=== PATIENT | male | born 2005 | race Caucasian/White ===

== ENCOUNTER 2025-03-19 14:54 | Emergency (ER) | payer BC, SELFPAY ==
--- NOTE | ~2025-03-19 | CT_ITS ---
EXAMINATION: CT facial bones wo con COMPARISON: None HISTORY: fell of skateboard - facial trauma TECHNIQUE: Axial images were obtained without IV contrast. Sagittal, coronal reconstruction images were obtained from the axial views. CT scan performed using dose optimization techniques including the following automated exposure control; adjustment of mA and/or kV; use of iterative reconstruction technique. Automatic exposure control was used to reduce radiation dose. Permanent radiation dose record is archived to PACS. FINDINGS: The nasal bones appear intact. Anterior maxillary sinus douglas, zygomatic arches and temporomandibular joints intact. Orbital floors and medial and orbits are intact. Minimal ethmoidal and maxillary sinusitis. There is no retrobulbar hemorrhage or preseptal soft tissue swelling. The visualized brain parenchyma appears unremarkable. Minimal stranding noted in the soft tissues overlying the left maxilla. The remaining soft tissues appear unremarkable. IMPRESSION: No fracture is identified Reviewed, dictated and finalized at location P. IMPRESSION: No fracture is identified
--- NOTE | ~2025-03-19 | CT_ITS ---
EXAMINATION: CT brain wo con COMPARISON: None HISTORY: fell off skateboard/hit head/CONTRERAS TECHNIQUE: Axial images were obtained through the brain without IV contrast. CT scan performed using dose optimization techniques including the following automated exposure control; adjustment of mA and/or kV; use of iterative reconstruction technique. Automatic exposure control was used to reduce radiation dose. Permanent radiation dose record is archived to PACS. FINDINGS: No acute infarct or parenchymal hemorrhage. No abnormal mass or mass effect. No midline shift. No extra-axial fluid collections. No hydrocephalus. . Mastoid air cells unremarkable. Sinuses and orbits unremarkable. No acute fracture. No significant facial or scalp soft tissue swelling evident. No radiopaque foreign body is seen. Impression: 1.No acute intracranial abnormality. Reviewed, dictated and finalized at location P. Impression: 1.No acute intracranial abnormality.
--- NOTE | ~2025-03-19 | XR_ITS ---
EXAMINATION: [id number], 03/19/2025 15:23 CDT HISTORY: fell off skateboard- left rib pain COMPARISON: No comparisons available. Findings: No acute fracture or malalignment. No significant degenerative changes. Soft tissues unremarkable. Impression: No acute fracture or malalignment. Reviewed, dictated and finalized at location P. Impression: No acute fracture or malalignment.
[2025-03-19 15:03] VITALS: BP 112/67; PULSE 87; RESP 18; TEMP 36.9; O2SAT 99
--- NOTE | 2025-03-19 15:06 | ED_ITS ---
HPI - Wound/Laceration General Chief Complaint: Wound/Laceration Stated Complaint: Skateboard injury to left face/ribs Time Seen by Provider: 03/19/25 15:06 Focused HPI: Omar is a 19-year-old male patient presenting to the ER today with complaints of left-sided facial pain, left rib pains, and headache falling off his skateboard. He reports he did hit is head any currently has a headache. Has not taken any medications for his symptoms. Has facial abrasions on the left side of his face with a small laceration to the chin. Denies any loss of conscious. Denies any neck pain. GENERAL: Well-appearing, well-nourished, and in no acute distress. HEAD: Normocephalic, atraumatic. CHEST: Clear to auscultation. No respiratory distress. HEART: Regular rate and rhythm. NEURO: Alert and oriented x3. Patient screened in triage and initial orders placed. Additional care and disposition to be based upon diagnostic testing and treatment. Source: patient Mode of arrival: ambulatory Limitations: no limitations Related Data Allergies Allergy/AdvReac Type Severity Reaction Status Date / Time No Known Allergies Allergy Verified 03/19/25 14:55 Course Vital Signs Vital signs: Vital Signs Temperature 36.9 C 03/19/25 15:03 Pulse Rate 87 03/19/25 15:03 Respiratory Rate 18 03/19/25 15:03 Blood Pressure 112/67 03/19/25 15:03 Pulse Oximetry 99 03/19/25 15:03 Oxygen Delivery Room Air 03/19/25 15:03 Temperature 36.9 C 03/19/25 15:03 Pulse Rate 87 03/19/25 15:03 Respiratory Rate 18 03/19/25 15:03 Blood Pressure 112/67 03/19/25 15:03 Pulse Oximetry 99 03/19/25 15:03 Oxygen Delivery Room Air 03/19/25 15:03 Discharge Plan Discharge Patient Language: Luxembourgish Follow-up/Referrals: PHYSICIAN NOT ON STAFF,NONSTAFF [Primary Care Provider]
--- NOTE | 2025-03-19 20:48 | ED_ITS ---
HPI - Wound/Laceration General Chief Complaint: Wound/Laceration Stated Complaint: Skateboard injury to left face/ribs Time Seen by Provider: 03/19/25 15:06 History of Present Illness HPI narrative: 19-year-old male presenting after falling off a skateboard. patient hit his head and braced himself with his chest and hand. Has some abrasions to his face and right upper extremity. No loss of consciousness. Denies any other injuries. Able to get up and ambulate without difficulty. Presents via walk-in triage. Endorses pain to the left side of his ribs where he hit the ground. No difficulty breathing or chest pain. Pain 3/10 at this time. Tetanus is up-to-date. No medical conditions otherwise. Related Data Allergies Allergy/AdvReac Type Severity Reaction Status Date / Time No Known Allergies Allergy Verified 03/19/25 14:55 Review of Systems Review of Systems: As reviewed above in HPI Exam Narrative: GENERAL: [Well-appearing, well-nourished, and in no acute distress.] HEAD: Normocephalic, superficial abrasions to the left side of the face, no bleeding or retained foreign body. EYES: [PERRLA and EOMI.] ENT: Nares clear, no rhinorrhea or epistaxis. Mucous membranes moist. NECK: Supple. CHEST: clear to auscultation, no respiratory distress or labored breathing. Symmetric chest rise. HEART: 2+ radial pulses, warm extremity. ABDOMEN: Nondistended EXTREMITIES: Normal range of motion. No crepitus with palpation of the chest wall, ambulatory without difficulty. Full range of motion the upper and lower extremities. Strength full SKIN: Superficial abrasion to the left side of the face and chin, no lacerations or bleeding. Superficial abrasion to the dorsum of the right hand NEURO: [No focal deficits]. Alert and oriented [x3.] PSYCH: [Normal mood and affect.] Course Vital Signs Vital signs: Vital Signs Temperature 36.9 C 03/19/25 15:03 Pulse Rate 87 03/19/25 15:03 Respiratory Rate 18 03/19/25 15:03 Blood Pressure 112/67 03/19/25 15:03 Pulse Oximetry 99 03/19/25 15:03 Oxygen Delivery Room Air 03/19/25 15:03 Temperature 36.7 C 03/19/25 21:26 Pulse Rate 80 03/19/25 21:26 Respiratory Rate 18 03/19/25 21:26 Blood Pressure 128/72 03/19/25 21:26 Pulse Oximetry 100 03/19/25 21:26 Oxygen Delivery Room Air 03/19/25 15:03 MDM - Wound/Laceration MDM Narrative Medical decision making narrative: 19-year-old male presenting after falling off a skateboard. patient hit his head and braced himself with his chest and hand. Has some abrasions to his face and right upper extremity. No loss of consciousness. Denies any other injuries. Able to get up and ambulate without difficulty. Presents via walk-in triage. Endorses pain to the left side of his ribs where he hit the ground. No difficulty breathing or chest pain. Pain 3/10 at this time. Tetanus is up-to-date. No medical conditions otherwise. patient is overall well-appearing has superficial injuries and abrasions. Given mechanism of injury with head trauma without loss of consciousness CT of the head was ordered as well as the facial bones given the abrasions over the left side of his face. Rib series and chest x-ray obtained. Patient given Tylenol and ibuprofen for pain he rates currently 3/10. CT scans were unremarkable for any acute injuries. Patient's wounds were cleaned and topical antibiotic cream applied. Patient given wound care instructions and safe for discharge home at this time. Medical Records Attestation: I reviewed the patient's medical records. Imaging Data Attestation: I personally reviewed and interpreted this imaging study as follows: My impression: Impressions Ribs w/Chest X-Ray 03/19/25 15:34 Impression: No acute fracture or malalignment. Head CT 03/19/25 15:45 Impression: 1.No acute intracranial abnormality. Face CT 03/19/25 15:47 IMPRESSION: No fracture is identified Discharge Plan Discharge Clinical Impression: Ground-level fall, Superficial abrasion Patient Disposition: Home Condition: Stable Instructions: Antibiotic Form, Abrasion (ED) Additional Instructions: your CT scans and x-rays were negative for any acute injuries. Your superficial abrasions will be treated with topical antibiotic cream. No signs of infection presently but keep the area clean and dry and covered with bandages as well as the topical cream. Tylenol and ibuprofen every 4-6 hours for pain control and swelling control. Return with any emergent concerns otherwise follow-up with regular doctor. Patient Language: Spanish Prescriptions: New Triple Antibiotic 3.5mg-400 unit- 5,000 unit/gram ointment 1 applic topical TID Qty: 14 0RF Follow-up/Referrals: PHYSICIAN NOT ON STAFF,NONSTAFF [Primary Care Provider] Time of Disposition: 20:55
[2025-03-19] MEDS: IBUPROFEN 600 MG TABLET PO (21:21)
[2025-03-19] MEDS: ACETAMINOPHEN 500 MG TABLET 1000 MG PO (21:21)
[2025-03-19] MEDS: NEOMYCIN/POLYMYXIN/BACITRACIN OINTMENT 15 GM TUBE 1 APPLIC TOPICAL (21:24)
[2025-03-19 21:26] VITALS: BP 128/72; PULSE 80; RESP 18; TEMP 36.7; O2SAT 100
== END 2025-03-19 21:27 | disposition home or self-care (01) ==
PROVIDERS: Emergency Provider Student in an Organized Health Care Education/Training Program
DX: S00.81XA Abrasion of other part of head, initial encounter (principal); V00.131A Fall from skateboard, initial encounter
CPT/HCPCS: 70450; 70486; 71101; 99284; A9270